=== PATIENT | female | born 1970 | race Caucasian/White ===

== ENCOUNTER 2024-06-08 14:03 | Emergency (ER) | payer MEDICAID ==
[~2024-06-08] VITALS: Ht 162.6 cm; Wt 71.0 kg
[2024-06-08 14:06] VITALS: TEMP 98.7; O2SAT 98
[2024-06-08 14:07] VITALS: O2SAT 98
[2024-06-08 16:32] LABS: BASOPHILS % 0.3 % (0.0-2.0); DIFFERENTIAL COMMENT 0; EOSINOPHILS % 2.4 % (0.0-5.0); HEMATOCRIT. 42.5 % (36.0-48.0); HEMOGLOBIN. 14.1 g/dL (12.0-16.0); LYMPHOCYTES % 33.3 % (20.0-50.0); MEAN CORPUSCULAR HEMOGLOBIN 29.3 pg (28.0-32.0); MEAN CORPUSCULAR HGB CONC 33.2 g/dL (31.0-37.0); MEAN CORPUSCULAR VOLUME 88.3 fL (81.0-99.0); MEAN PLATELET VOLUME 10.7 fl (7.4-10.4); MONOCYTES % 7.1 % (2.0-8.0); NEUTROPHILS % 56.9 % (40.0-76.0); PLATELET 200 x1000/uL (130-400); RED BLOOD CELL COUNT 4.81 mill/uL (4.2-5.4); RED CELL DISTRIBUTION WIDTH 13.9 % (11.6-14.6); WHITE BLOOD COUNT 6.8 x1000/uL (4.5-11.0)
[2024-06-08 16:36] LABS: CHLORIDE 105 mEq/L (98-107); POTASSIUM 4.1 mEq/L (3.5-5.1); SODIUM 136 mEq/L (136-145)
[2024-06-08 16:38] LABS: CALCIUM 9.9 mg/dL (8.7-10.4); CARBON DIOXIDE 25 mEq/L (21-32)
[2024-06-08 16:42] LABS: CREATININE 0.6 mg/dL (0.6-1.0)
[2024-06-08 16:43] LABS: GLUCOSE 221 mg/dL (70-105); UREA NITROGEN BLOOD 8 mg/dL (9-23)
[2024-06-08 16:55] LABS: BETA HYDROXYBUTYRATE 0.2 mMol/L (0.0-0.3)
[2024-06-08] MEDS ORDERED: CYCL10TA21 MT (18:10)
[2024-06-08] MEDS ORDERED: LIDO700A15 TP (18:10)
[2024-06-08 18:25] VITALS: BP 148/65; PULSE 97; RESP 16
[2024-06-08] MEDS: KETOROLAC 30MG/ML VIAL IM ONE (18:25)
[2024-06-08] MEDS: LIDOCAINE 5% PATCH TOP SCH (18:25)
== END 2024-06-08 19:02 | disposition home or self-care (01) ==
LOC: ER 14:03
DX: M54.50 Low back pain, unspecified (principal); M53.3 Sacrococcygeal disorders, not elsewhere classified; F19.90 Other psychoactive substance use, unspecified, uncomplicated
CPT/HCPCS: 99283; 80048; 82010; 82962; 85025; 36415; 96372; J1885